=== PATIENT | female | born 1985 ===

== ENCOUNTER 2018-04-10 10:50 | Observation (INO) | payer MEDICAID ==
[~2018-04-10] VITALS: Ht 162.6 cm; Wt 106.6 kg
[2018-04-10] MEDS ORDERED: PREN-96 PO (11:32)
== END 2018-04-10 11:55 | disposition home or self-care (01) | DRG 566 ==
LOC: LDRP 10:50
PROVIDERS: ADMIT Obstetrics & Gynecology; ATTEND Obstetrics & Gynecology
DX: O40.3XX0 Polyhydramnios, third trimester, not applicable or unspecified (principal); O26.893 Other specified pregnancy related conditions, third trimester; R05 Cough; R10.30 Lower abdominal pain, unspecified; Z3A.33 33 weeks gestation of pregnancy
CPT/HCPCS: 76818; G0378; 59025; 81002

== ENCOUNTER 2018-04-16 11:00 | Observation (INO) | payer MEDICAID ==
[~2018-04-16 11:00] MED LIST: PREN-96 PO
== END 2018-04-16 12:20 | disposition home or self-care (01) | DRG 566 ==
LOC: LDRP 11:00
PROVIDERS: ADMIT Obstetrics & Gynecology; ATTEND Obstetrics & Gynecology
DX: O40.3XX0 Polyhydramnios, third trimester, not applicable or unspecified (principal); Z3A.34 34 weeks gestation of pregnancy
CPT/HCPCS: 76818; G0378; 59025; 81002

== ENCOUNTER 2018-04-23 10:50 | Observation (INO) | payer MEDICAID | END 2018-04-23 12:25 | disposition home or self-care (01) | DRG 566 | LOC: LDRP 10:50 | PROVIDERS: ADMIT Obstetrics & Gynecology; ATTEND Obstetrics & Gynecology | DX: O40.3XX0 Polyhydramnios, third trimester, not applicable or unspecified (principal); O62.9 Abnormality of forces of labor, unspecified; Z3A.35 35 weeks gestation of pregnancy | CPT/HCPCS: 59025; 76818; 81002; G0378 ==